=== PATIENT | female | born 1945 | race Caucasian/White ===

== ENCOUNTER → 2017-06-10 | Outpatient (CLI) | payer MEDICARE ==
[~2017-06-10] MED LIST: ASPI-1197 PO; BETA1TAB18 PO; CALC-724 PO; ESOM40CA PO; GLUC-56 PO; IPRA42SP IH; MULT1TAB70 PO; POTA99TA25 PO; PRAV20TA4 PO; TRIA1CAP6 PO; UBID200C18 PO; VERA180T8 PO
== END | disposition home or self-care (01) ==
LOC: RAH 14:02
PROVIDERS: ATTEND Physical Medicine & Rehabilitation
DX: M41.85 Other forms of scoliosis, thoracolumbar region (principal); M25.78 Osteophyte, vertebrae; M99.04 Segmental and somatic dysfunction of sacral region
CPT/HCPCS: 72082

== ENCOUNTER 2022-01-10 05:40 | Day surgery (SDC) | payer MEDICARE ==
[2022-01-08 10:10] LABS: BASOPHILS % (AUTO) 0.7 % (0.0-5.0); EOSINOPHILS % (AUTO) 1.1 % (0.0-8.0); MEAN CORPUSCULAR HEMOGLOBIN 30.2 pg (27.0-33.0); MEAN CORPUSCULAR HGB CONC 33.2 g/dL (32.0-36.0); MEAN CORPUSCULAR VOLUME 90.9 fL (79-99); MONOCYTES % (AUTO) 7.6 % (3.0-13.0); NEUTROPHILS % (AUTO) 64.3 % (40.0-77.0); PLATELET COUNT (AUTO) 183 K/uL (130-400); RED BLOOD CELL COUNT(AUTO) 4.51 MIL/uL (4.00-5.50); RED CELL DISTRIBUTION WIDTH 13.7 % (11.0-15.5); WHITE BLOOD COUNT (AUTO) 6.2 K/uL (4.8-10.8)
[2022-01-08 10:27] LABS: POTASSIUM 3.6 mmol/L (3.5-5.1)
[2022-01-09 09:10] VITALS: BP 136/60
[2022-01-10] VITALS (12 sets, daily range): BP systolic 111–120; BP diastolic 53–74
[~2022-01-10] VITALS: Ht 160 cm; Wt 64.1 kg
[~2022-01-10 05:40] MED LIST changes: -ASPI-1197 PO; +CALC-1125 PO; -CALC-724 PO; -ESOM40CA PO; -GLUC-56 PO; +LOSA50TA64 PO; +MULT-660 PO; -MULT1TAB70 PO; +OMEP40CA21 PO; -POTA99TA25 PO; -PRAV20TA4 PO; +PRAV40TA3 PO; +TOPI50TA24 PO; -TRIA1CAP6 PO; +TRIA1TAB3 PO; -VERA180T8 PO; +[UNRECOGNIZED DRUG - CODE] PO
[2022-01-10] MEDS ORDERED: LACTATED RINGERS 1000ML 1,000 ML IV ONE (06:09)
[2022-01-10] MEDS ORDERED: LIDOCAINE PF 100MG/5ML (2%) SYRINGE 5ML ONE (07:06)
[2022-01-10] MEDS ORDERED: PROPOFOL 10 MG/ML 20ML VIAL IV ONE (07:07)
[2022-01-10] MEDS ORDERED: FENTANYL CITRATE PF 50 MCG/1 ML 2ML VIAL ONE (07:07)
[2022-01-10] MEDS ORDERED: LIDOCAINE HCL MDV 0.5% 50ML VIAL IJ ONE (07:14)
[2022-01-10] MEDS ORDERED: SODIUM BICARB [NEONATAL] 4.2% 10ML SYG ONE (07:14)
[2022-01-10] MEDS ORDERED: BUPIVACAINE/PF 0.25% 30ML VIAL IJ ONE (07:14)
[2022-01-10] MEDS ORDERED: IOPAMIDOL 10 ML VIAL ONE (07:42)
== END 2022-01-10 09:30 | disposition home or self-care (01) ==
LOC: DAH 05:40
PROVIDERS: ATTEND Neurological Surgery
DX: M53.3 Sacrococcygeal disorders, not elsewhere classified (principal); Z88.8 Allergy status to other drugs, medicaments and biological substances; Z79.899 Other long term (current) drug therapy; I45.10 Unspecified right bundle-branch block
CPT/HCPCS: 36415; 72202; 80048; 85025; 87426; 93005; G0260; J1030; J2001; J2704; J3010; J3490; J7120

== ENCOUNTER 2022-01-23 05:40 | Day surgery (SDC) | payer MEDICARE ==
[2022-01-22 12:52] VITALS: BP 126/78
[~2022-01-23] VITALS: Ht 160 cm; Wt 63.2 kg
[~2022-01-23 05:40] MED LIST changes: +PHARMACY COMMUNICATION MISC SCH
[2022-01-23] MEDS ORDERED: LACTATED RINGERS 1000ML 1,000 ML IV ONE (06:26)
[2022-01-23 06:42] VITALS: BP 98/64
[2022-01-23] MEDS ORDERED: MIDAZOLAM HCL 1 MG/ML 2ML VIAL ONE (06:58)
[2022-01-23] MEDS ORDERED: FENTANYL CITRATE PF 50 MCG/1 ML 2ML VIAL ONE (06:59)
[2022-01-23] MEDS ORDERED: LIDOCAINE HCL MDV 0.5% 50ML VIAL IJ ONE (07:00)
[2022-01-23] MEDS ORDERED: LIDOCAINE HCL 1% 10 ML VIAL ONE (07:02)
[2022-01-23] MEDS ORDERED: BUPIVACAINE/PF 0.5% 30ML VIAL ONE (07:02)
[2022-01-23 08:10] VITALS: BP 95/56
[2022-01-23 08:25] VITALS: BP 99/56
== END 2022-01-23 08:40 | disposition home or self-care (01) ==
LOC: DAH 05:40
PROVIDERS: ATTEND Neurological Surgery
DX: M79.18 Myalgia, other site (principal); M53.3 Sacrococcygeal disorders, not elsewhere classified; I25.2 Old myocardial infarction; Z79.899 Other long term (current) drug therapy
CPT/HCPCS: 87426; 93005; 20552; A4663; A4215 ×2; J7120; J1030; J3490 ×3; A4223; A4222; A4221; J2250; J3010

== ENCOUNTER → 2022-04-10 | Outpatient (CLI) | payer MEDICARE ==
[~2022-04-10] MED LIST changes: +GADOTERATE MEGLUMINE 10 MMOL/20 ML VIAL IV ONE; +GADOTERATE MEGLUMINE 5 MMOL/10 ML VIAL IV ONE; -PHARMACY COMMUNICATION MISC SCH
== END | disposition home or self-care (01) ==
LOC: RAH 08:11
PROVIDERS: ATTEND Neurological Surgery
DX: M47.816 Spondylosis without myelopathy or radiculopathy, lumbar region (principal); R22.32 Localized swelling, mass and lump, left upper limb; M41.86 Other forms of scoliosis, lumbar region
CPT/HCPCS: 72197; A9575

== ENCOUNTER → 2023-09-03 | Outpatient (CLI) | payer MEDICARE ==
[~2023-09-03] MED LIST changes: -GADOTERATE MEGLUMINE 5 MMOL/10 ML VIAL IV ONE; +TOPI-97 PO; -TOPI50TA24 PO
== END | disposition home or self-care (01) ==
LOC: RAH 07:05
PROVIDERS: ATTEND Nurse Practitioner
DX: H90.41 Sensorineural hearing loss, unilateral, right ear, with unrestricted hearing on the contralateral side (principal)
CPT/HCPCS: 70553; A9575

== ENCOUNTER → 2024-12-17 | Outpatient (CLI) | payer MEDICARE ==
[~2024-12-17] MED LIST changes: -PRAV40TA3 PO; +PRAV40TA62 PO
--- NOTE | 2024-12-18 17:04 | HMCIMG ---
EXAMINATION: NONCONTRAST MRI OF THE RIGHT SHOULDER. CLINICAL HISTORY: Pain. COMPARISON: One provided. TECHNIQUE: Multiplanar, multisequence MR images of the right shoulder are submitted. FINDINGS: There is type I acromion with no subacromial spur. The coracoclavicular ligament is intact. 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 No periosseous synovial thickening. There is mild to moderate enhancing subacromial-subdeltoid bursitis. The peritendinous soft tissues are normal. There is full thickness tear of the supraspinatus and anterior infraspinatus from a insertion with retraction up to the mid humeral head by 2.6 cm, yielding an AP gap of 2.2 cm. Mild to moderate subscapularis tendinosis. Teres minor is intact. There is moderate sclerosis in the greater tuberosity. Mild supraspinatus and mild to moderate infraspinatus muscle volume loss with fatty infiltration. Mild to moderate subacromial bursal fluid. The long head of the biceps tendon is in its anatomic location and reveals moderate to advanced tendinosis in the tavia an intra-articular segment. There is normal bone marrow signal within the shoulder girdle without fracture, avascular necrosis, or osteomyelitis. There is superior migration of the humeral head, in close proximity to the undersurface of the acromion. There is superior labral tear extending anteriorly and posteriorly up to the equator. Mild anterior inferior glenoid osseous remodeling. The glenohumeral joint is intact. The soft tissues are normal. No abnormal enhancement is seen on the post-contrast images. IMPRESSION: 1. Full-thickness tear of supraspinatus and anterior infraspinatus tendons with 2.6 cm retraction. 2. Superior labral tear extending anteriorly and posteriorly. 3. 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 4. Superior migration of humeral head. 5. Mild to moderate subscapularis tendinosis. 6. Mild supraspinatus and mild to moderate infraspinatus muscle volume loss with fatty infiltration. /[place]
== END | disposition home or self-care (01) ==
LOC: RAH 07:42
PROVIDERS: ATTEND Family Medicine
DX: S43.431A Superior glenoid labrum lesion of right shoulder, initial encounter (principal); M75.121 Complete rotator cuff tear or rupture of right shoulder, not specified as traumatic; M67.813 Other specified disorders of tendon, right shoulder; M19.011 Primary osteoarthritis, right shoulder; M75.51 Bursitis of right shoulder; M25.411 Effusion, right shoulder; M25.511 Pain in right shoulder; M89.9 Disorder of bone, unspecified; R60.0 Localized edema; X58.XXXA Exposure to other specified factors, initial encounter; Y93.89 Activity, other specified; Y92.89 Other specified places as the place of occurrence of the external cause; Y99.8 Other external cause status
CPT/HCPCS: 73223; A9575